=== PATIENT | male | born 2000 | race Caucasian/White ===

== ENCOUNTER 2019-12-29 08:57 | Emergency (ER) | payer OTHER ==
[~2019-12-29] VITALS: Ht 177.8 cm; Wt 81.8 kg
[2019-12-29 09:09] VITALS: TEMP 99.6
[2019-12-29 09:47] LABS: BASO % 0.2 % (0.0-2.0); EOS # 0.1 (0.0-0.7); EOS % 2.1 % (0-4.0); GRAN # 2.1 (1.4-6.5); GRAN % 44.5 % (42.2-75.2); HEMATOCRIT 41.7 % (36.0-47.0); HEMOGLOBIN 14.5 g/dl (12.5-16.1); LYMPH # 1.8 (1.2-3.4); LYMPH % 37.7 % (20.0-51.0); MEAN CELL VOLUME 87 fl (80.0-95.0); MEAN CORPUSCULAR HEMOGLOBIN 30 pg (26.0-32.0); MEAN CORPUSCULAR HGB CONC 35 g/dl (33.0-37.0); MEAN PLATELET VOLUME 9.3 fl (7.4-10.4); MONO # 0.7 (0.1-0.6); MONO % 15.5 % (1.7-9.3); PLATELET COUNT 176 K/mm3 (130-400); REDCELL DISTRIBUTION WIDTH-CV 12.5 % (11.5-14.5)
[2019-12-29 09:57] LABS: ALANINE AMINOTRANSFERASE 16 U/L (4-49); ALBUMIN 4.7 gm/dL (3.5-5.0); ALKALINE PHOSPHATASE 92 U/L (50-136); ANION GAP 11 mmol/L (7-16); AST,SGOT 23 U/L (15-37); BILIRUBIN,TOTAL 0.5 mg/dL (0.0-1.0); BLOOD UREA NITROGEN 17 mg/dL (9-20); CALCIUM 9.6 mg/dL (8.4-10.2); CARBON DIOXIDE 24 mmol/L (22-30); CHLORIDE 105 mmol/L (98-107); CREATININE, serum 0.94 (0.66-1.25); GLUCOSE 103 mg/dL (74-106); POTASSIUM 4.2 mmol/L (3.4-5.0); SODIUM 140 mmol/L (137-145)
[2019-12-29 10:09] LABS: TROPONIN-I < 0.012 ng/mL (0.000-0.035)
[2019-12-29] MEDS ORDERED: MEDROL 4MG DOSPA4 MG PO (10:25)
[2019-12-29] MEDS ORDERED: FLEXERIL 1010 MG/TAB PO (10:25)
[2019-12-29 11:32] VITALS: BP 119/68; PULSE 88
== END 2019-12-29 10:30 | disposition home or self-care (01) ==
LOC: COL.ER 08:57
PROVIDERS: Physician Assistant
DX: U07.1 COVID-19 (principal); R07.89 Other chest pain; R06.00 Dyspnea, unspecified
CPT/HCPCS: J1885; J7030

== ENCOUNTER 2022-01-20 17:49 | Emergency (ER) | payer OTHER ==
[~2022-01-20] VITALS: Ht 180.3 cm; Wt 88.6 kg
[~2022-01-20 17:49] MED LIST: FLEXERIL 1010 MG/TAB PO; MEDROL 4MG DOSPA4 MG PO
[2022-01-20 18:24] VITALS: TEMP 98.3
[2022-01-20 20:30] VITALS: BP 140/80; PULSE 78
== END 2022-01-20 20:34 | disposition home or self-care (01) ==
LOC: COL.ER 17:49
DX: S61.012A Laceration without foreign body of left thumb without damage to nail, initial encounter (principal); W26.9XXA Contact with unspecified sharp object(s), initial encounter